=== PATIENT | female | born 1980 | race Caucasian/White ===

== ENCOUNTER 2022-04-07 15:37 | Emergency (ER) | payer MEDICAID ==
[~2022-04-07] VITALS: Ht 154.9 cm; Wt 54.0 kg
[2022-04-07] MEDS ORDERED: KETOROLAC 15MG/ML VIAL IV ONE (16:15)
[2022-04-07] MEDS ORDERED: FENTANYL CITRATE/PF 50MCG/ML 2ML VIAL IV ONE ×2 (16:15→17:15)
[2022-04-07] MEDS ORDERED: KETAMINE HCL 50 MG/ML 10ML IV ONE (17:15)
[2022-04-07] MEDS ORDERED: IBUP-2029 MT (18:52)
[2022-04-07 19:09] VITALS: BP 118/92
== END 2022-04-07 19:10 | disposition home or self-care (01) ==
LOC: ER 15:51
DX: S43.005A Unspecified dislocation of left shoulder joint, initial encounter (principal); X58.XXXA Exposure to other specified factors, initial encounter; Y93.89 Activity, other specified; Y92.89 Other specified places as the place of occurrence of the external cause; Y99.8 Other external cause status
CPT/HCPCS: 23650; 73030; 96374; 99152; 99285; J1885; J3010; J3490; L3670